=== PATIENT | female | born 1990 | race Caucasian/White ===

== ENCOUNTER 2016-07-12 13:56 | Emergency (ER) | payer OTHER ==
--- NOTE | 2016-07-12 15:52 | UC ---
Respiratory Complaint HPI - HPI Summary HPI Summary: 1) Patient comes to the office complaining of a cold that has moved in to her chest. States that she has had a cold for the past five weeks with a runny nose , cough and congestion. She had gradually improving symptoms over the last two weeks. Then last week, her nasal congestion returned as well as a productive cough positive for yellow mucus. She denies any fevers. 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 2) Sustained twisting injury to her right wrist. She was at [employer] on Wednesday, was supporting her body weight with her hands, and her right elbow "bowed" out. This movement resulted in the twisting of her right wrist. She states that she immediately felt pain and today it continues to hurt despite efforts to apply ice. She denies any pain in her elbow. Her right wrist is swollen, red and tender on palpation. - History of Current Complaint Chief Complaint: UCRespiratory Stated Complaint: SINUS COMPLAINT Time Seen by Provider: 07/12/16 15:21 Hx Obtained From: Patient Hx Last Menstrual Period: 2 years - on control Onset/Duration: Gradual Onset, Lasting Weeks Timing: Intermittent Episodes Severity Initially: Mild Severity Currently: Mild Character: Sputum Description: - yellow Aggravating Factors: Nothing Alleviating Factors: OTC Meds Associated Signs And Symptoms: Positive: Wheezing - with physical activity, Nasal Congestion. Negative: Dyspnea, Fever, Chills - Risk Factors Cardiac Risk Factors: Negative Pseudomonas Risk Factors: Negative - Allergies/Home Medications Allergies/Adverse Reactions: Allergies Allergy/AdvReac Type Severity Reaction Status Date / Time Pineapple Allergy Severe Unknown Verified 07/12/16 15:23 Reaction Details Home Medications: Home Medications [place]-3 Fatty Acids [Fish Oil] 1,000 mg PO DAILY 07/12/16 [History Confirmed ] PMH/Surg Hx/FS Hx/Imm Hx Previously Healthy: Yes Endocrine History Of: Denies: Diabetes, Thyroid Disease Cardiovascular History Of: Denies: Cardiac Disorders Respiratory History Of: Reports: Asthma - Surgical History Surgical History: Yes Surgery Procedure, Year, and Place: L ACL SX, ENDOMETRIOSIS. MANIPULATION OF L ACL. T & A. WISDOM TEETH EXTRACTION - Family History Known Family History: Positive: Hypertension - Social History Occupation: Employed Full-time Alcohol Use: Occasionally Substance Use Type: None Smoking Status (MU): Never Smoked Tobacco Review of Systems Constitutional: Negative Skin: Negative Eyes: Negative ENT: Nasal Discharge Respiratory: Cough Cardiovascular: Negative Gastrointestinal: Negative Genitourinary: Negative Motor: Negative Neurovascular: Negative Musculoskeletal: Negative Neurological: Negative Psychological: Negative All Other Systems Reviewed And Are Negative: Yes Physical Exam Triage Information Reviewed: Yes Appearance: Well-Appearing, No Pain Distress, Well-Nourished Vital Signs: Initial Vital Signs Temp 98.8 F 07/12/16 15:25 Pulse 59 07/12/16 15:25 Resp 16 07/12/16 15:25 BP 120/57 07/12/16 15:25 Pulse Ox 99 07/12/16 15:25 Vital Signs Reviewed: Yes Eye Exam: Normal Eyes: Positive: Conjunctiva Clear ENT: Positive: Pharynx normal, Nasal congestion, TMs normal. Negative: Pharyngeal erythema, Tonsillar swelling, Tonsillar exudate Neck exam: Normal Neck: Positive: Supple, Nontender, No Lymphadenopathy Respiratory Exam: Normal Respiratory: Positive: Chest non-tender, Lungs clear, Normal breath sounds, No respiratory distress, No accessory muscle use, Other: - no cough on exam. Negative: Crackles, Rhonchi, Stridor, Wheezing Cardiovascular Exam: Normal Cardiovascular: Positive: RRR, No Murmur Musculoskeletal Exam: Other - Right wrist swelling Musculoskeletal: Positive: Strength Limited @ - R cotton breeder, ROM Limited @ - R wrist , Other: - R wrist swelling, tender on palpation to R distal ulna Neurological Exam: Normal Neurological: Positive: Alert, Muscle Tone Normal Psychological Exam: Normal Psychological: Positive: Age Appropriate Behavior Skin Exam: Normal UC Diagnostic Evaluation - Laboratory O2 Sat by Pulse Oximetry: 99 Respiratory Course/Dx - Differential Dx/Diagnosis Provider Diagnoses: R wrist sprain. URI, likely viral Discharge - Discharge Plan Condition: Stable Disposition: HOME Patient Education Materials: Upper Respiratory Infection (ED), Wrist Sprain (ED ) Referrals: Paresh Campuzano MD [Medical Doctor] - 2 Weeks Additional Instructions: To arrange to see an orthopedist in [place], please call tomorrow morning. You can remove the splint for bathing and sleeping, but try to keep it on at other times. Call or return if you develop increasing fever, shortness of breath, chest pain , bloody sputum, or otherwise worsen. If you have not improved at all after several days, contact your primary care physician or return here.
--- NOTE | 2016-07-12 16:07 | RAD ---
INDICATION: Right wrist injury COMPARISON: None TECHNIQUE: AP, lateral, and oblique views were obtained. FINDINGS: The bony structures, joint spaces, and soft tissues are normal for age. IMPRESSION: NEGATIVE EXAMINATION
[2016-07-12 16:48] VITALS: BP 96/52
== END 2016-07-12 16:50 | disposition home or self-care (01) ==
LOC: UCCORT 13:56
DX: J06.9 Acute upper respiratory infection, unspecified (principal); S63.501A Unspecified sprain of right wrist, initial encounter; X50.1XXA Overexertion from prolonged static or awkward postures, initial encounter; Y93.B9 Activity, other involving muscle strengthening exercises; Y92.9 Unspecified place or not applicable
CPT/HCPCS: 99213; G0463

== ENCOUNTER 2017-03-02 16:59 | Emergency (ER) | payer BC, OTHER ==
[2017-03-02 17:12] VITALS: BP 119/67
--- NOTE | 2017-03-02 17:39 | UC ---
Complaint Female HPI - HPI Summary HPI Summary: 26 y/o female presents to the urgent care c/o urinary frequency and burning on urination since last night. Seh feels pelvic pressure. Pain is 4/10. Pt denies vaginal discharge, back pain, SOB, abdominal pain, N/V/D, Hx of STD's. LMP:3 years ago, Pt has not taking anything to alleviate symptoms - History Of Current Complaint Chief Complaint: UCGU Stated Complaint: URINARY Time Seen by Provider: 03/02/17 17:37 Hx Obtained From: Patient Hx Last Menstrual Period: on Ministren ?: No Onset/Duration: Gradual Onset, Lasting Days - 1 day, Still Present Timing: Intermittent Severity Initially: Mild Severity Currently: Mild Pain Intensity: 4 Pain Scale Used: 0-10 Numeric Character: Burning Aggravating Factor(s): Urination Alleviating Factor(s): Nothing Associated Signs And Symptoms: Positive: Negative. Negative: Fever, Back Pain, Vaginal Bleeding/Discharge, Vaginal Discharge - Risk Factors Ectopic Risk Factor: Negative Ovarian Torsion Risk Factor: Negative - Allergies/Home Medications Allergies/Adverse Reactions: Allergies Allergy/AdvReac Type Severity Reaction Status Date / Time Pineapple Allergy Severe Unknown Verified 03/02/17 17:12 Reaction Details PMH/Surg Hx/FS Hx/Imm Hx Previously Healthy: Yes - Pt denies PMHX - Surgical History Surgical History: Yes Surgery Procedure, Year, and Place: L ACL SX, ENDOMETRIOSIS. MANIPULATION OF L ACL. T & A. WISDOM TEETH EXTRACTION. gallbladder 07/2016 - Family History Known Family History: Positive: Hypertension, Diabetes - Social History Occupation: Employed Full-time Lives: With Family Alcohol Use: Occasionally Substance Use Type: None Smoking Status (MU): Never Smoked Tobacco - Immunization History Most Recent Influenza Vaccination: none Review of Systems Constitutional: Negative Skin: Negative Eyes: Negative ENT: Negative Respiratory: Negative Cardiovascular: Negative Gastrointestinal: Negative Genitourinary: Dysuria, Frequency Motor: Negative Neurovascular: Negative Musculoskeletal: Negative Neurological: Negative Psychological: Negative Is Patient Immunocompromised?: No All Other Systems Reviewed And Are Negative: Yes Physical Exam Triage Information Reviewed: Yes Vital Signs: Initial Vital Signs Temp 98.7 F 03/02/17 17:08 Pulse 63 03/02/17 17:08 Resp 15 03/02/17 17:08 BP 119/67 03/02/17 17:08 Pulse Ox 100 03/02/17 17:08 - Additional Comments Vital signs: reviewed General: Normotensive,well nourished , well developed female, in no acute distress. Head: Normocephalic, no lesions. Eyes: PERRLA, EOM's full, conjunctivae clear, fundi grossly normal. Ears: EAC's clear, TM's normal. Nose: Mucosa normal, no obstruction. Throat: Clear, no exudates, no lesions. Neck: Supple, no masses, no thyromegaly, no bruits. Chest: Lungs clear, no rales, no rhonchi, no wheezes. Heart: RR, no murmurs, no rubs, no gallops. Abdomen: Soft, no tenderness, no masses, BS normal. Pelvic: Pt decllined exam. Back: Normal curvature, no tenderness. No B/L CVA tenderness Extremities: FROM, no deformities, no edema, no erythema. Neuro: Physiological, no localizing findings. Skin: Normal, no rashes, no lesions noted. Complaint Female Dx - Course Course Of Treatment: 26 y/o female presents to the urgent care c/o urinary frequency and burning on urination since last night. Seh feels pelvic pressure. Pain is 4/10. Pt denies vaginal discharge, back pain, SOB, abdominal pain, N/V/ D, Hx of STD's. LMP:3 years ago, Pt has not taking anything to alleviate symptoms.Hx obtained. UA and test ordered. UA results: Blood 2+, Leukoesterase 1+. test: negative. Possible UTI.Pt Rx Macrobid 100mg PO x 7 days. Pyridium 100mg PO TID x 2 days. Advised to increase fluid intake. Urine sent for culture if any abnormality Pt will be notified for further treatment or stop ABX. Pt advised If symptoms do not improve to return to the urgent care or f/u with PCP. Pt understood and agreed. Left the clinic ambulating. - Differential Dx/Diagnosis Differential Diagnosis/HQI/PQRI: Cervicitis, , Renal Colic, Sexually Transmitted Disease, Ureteral Stone, Urinary Tract Infection Provider Diagnoses: 1- Urinary tract infection. 2-Dysuria Discharge - Discharge Plan Condition: Stable Disposition: HOME Prescriptions: Nitrofurantoin Monohyd Macro [Macrobid] 100 mg PO BID #10 cap Phenazopyridine TAB* [Pyridium 100 mg TAB*] 100 mg PO TID #6 tab Patient Education Materials: Urinary Tract Infection in Women (ED) Referrals: Vanessa Ferrera MD [Primary Care Provider] - If Needed Additional Instructions: 1- Please take Macrobid 100mg PO x 5 days. Pyridium 100 mg PO TID x 2 days to alleviate urinary symptoms. Increase increase fluid intake. drink cranberry juice. 2-Urine sent for culture if any abnormality, you will be notified for further treatment. 3-If symptoms do not improve please return to the urgent care or f/u with her PCP.
--- NOTE | 2017-03-05 07:33 | UC ---
Progress - Progress Note Progress Note: neg culture stop macrobid recheck prn
== END 2017-03-02 18:05 | disposition home or self-care (01) ==
LOC: UCCORT 16:59
DX: N39.0 Urinary tract infection, site not specified (principal); Z32.02 Encounter for pregnancy test, result negative; Z91.018 Allergy to other foods
CPT/HCPCS: 81003; 84702; 87086; 99212; G0463

== ENCOUNTER 2018-08-28 12:52 | Emergency (ER) | payer BC, OTHER ==
--- NOTE | 2018-08-28 14:11 | UC ---
Throat Pain/Nasal Glenn HPI - HPI Summary HPI Summary: 27-year-old female presents with complaints of nasal congestion, maxillary sinus pain, and mild sore throat for one week. States over the past 4 months she has been having recurrent sinus infections and was most recently treated approximately 3 weeks ago with a ten-day course of amoxicillin. Denies fever, chills, ear pain, dysphagia, chest pain, shortness of breath, or cough. - History of Current Complaint Stated Complaint: SINUS COMPLAINT Time Seen by Provider: 08/28/18 14:02 Hx Obtained From: Patient Hx Last Menstrual Period: on Ministren - Allergies/Home Medications Allergies/Adverse Reactions: Allergies Allergy/AdvReac Type Severity Reaction Status Date / Time pineapple Allergy Unknown Verified 08/28/18 14:12 Reaction Details PMH/Surg Hx/FS Hx/Imm Hx - Additional Past Medical History Additional PMH: Denies significant PMH - Surgical History Surgical History: Yes Surgery Procedure, Year, and Place: L ACL SX, ENDOMETRIOSIS. MANIPULATION OF L ACL. T & A. WISDOM TEETH EXTRACTION. gallbladder 07/2016 - Family History Known Family History: Positive: Hypertension, Diabetes - Social History Occupation: Student Lives: With Family Alcohol Use: Occasionally Substance Use Type: None Smoking Status (MU): Never Smoked Tobacco - Immunization History Most Recent Influenza Vaccination: none Review of Systems All Other Systems Reviewed And Are Negative: Yes Constitutional: Negative: Fever, Chills Skin: Negative: Rash Eyes: Negative: Drainage, Eye Redness ENT: Positive: Sore Throat, Nasal Discharge, Sinus Congestion, Sinus Pain/ Tenderness. Negative: Ear Ache Respiratory: Negative: Shortness Of Breath, Cough Cardiovascular: Negative: Palpitations, Chest Pain Gastrointestinal: Negative: Abdominal Pain, Vomiting, Diarrhea, Nausea Genitourinary: Positive: Negative Neurological: Positive: Negative Psychological: Positive: Negative Is Patient Immunocompromised?: No Physical Exam - Summary Physical Exam Summary: GENERAL APPEARANCE: Well developed, well nourished, alert and cooperative, and appears to be in no acute distress. EYES: Conjunctiva clear. No drainage. EARS: External auditory canals and tympanic membranes clear, hearing grossly intact. NOSE: Mild-moderate nasal congestion with mucosal erythema and edema. Maxillary sinus tenderness. THROAT: Pharyngeal cobblestoning. Tonsils surgically absent. Uvula midline. Oral cavity normal. Teeth and gingiva in good general condition. NECK: Neck supple, non-tender without lymphadenopathy. CARDIAC: Normal S1 and S2. No S3, S4 or murmurs. Rhythm is regular. There is no peripheral edema, cyanosis or pallor. Extremities are warm and well perfused. Capillary refill is less than 2 seconds. Peripheral pulses intact. LUNGS: Clear to auscultation without rales, rhonchi, wheezing or diminished breath sounds. ABDOMEN: Positive bowel sounds. Soft, nondistended, nontender. No guarding or rebound. No masses or hepatosplenomegally. MUSKULOSKELETAL: ROM intact to all extremities. No joint erythema or tenderness. Normal muscular development. Normal gait. SKIN: Skin normal color, texture and turgor with no lesions or eruptions. Triage Information Reviewed: Yes Vital Signs Reviewed: Yes Throat Pain/Nasal Course/Dx - Course Course Of Treatment: 27-year-old female presents with complaints of nasal congestion, maxillary sinus pain, and mild sore throat for one week. States over the past 4 months she has been having recurrent sinus infections and was most recently treated approximately 3 weeks ago with a ten-day course of amoxicillin. Denies fever, chills, ear pain, dysphagia, chest pain, shortness of breath, or cough. Afebrile. Vital signs stable. Exam was remarkable for mild to moderate nasal congestion with mucosal erythema and edema, maxillary sinus tenderness, and pharyngeal cobblestoning. Considering she was recently treated with a course of amoxicillin I will treat her for an acute sinusitis with Augmentin 875 mg twice a day 10 days as well as recommend symptomatic treatment including saline rinses, fluticasone nasal spray, and [id number] decongestant. I recommended that she have follow-up with ENT and she is requesting a referral to Dr. Shah which I did provide. She is to call his office tomorrow to schedule appointment. Anticipatory guidance and warning symptoms were reviewed with the patient. Verbalizes understanding and agrees with plan of care. - Differential Dx/Diagnosis Differential Diagnosis/HQI/PQRI: Influenza, Pharyngitis, Sinusitis, URI Provider Diagnosis: Acute maxillary sinusitis Discharge - Sign-Out/Discharge Documenting (check all that apply): Patient Departure All imaging exams completed and their final reports reviewed: No Studies - Discharge Plan Condition: Stable Disposition: HOME Prescriptions: Amoxicillin/Clavulanate TAB* [Augmentin TAB 875*] 875 mg PO BID #20 tab Fluticasone NASAL SPRAY 50MCG* [Flonase NASAL SPRAY 50MCG*] 2 spray BOTH NARES DAILY #1 btl Patient Education Materials: Sinusitis (ED) Referrals: CATE Brown [Primary Care Provider] - Irwin Shah MD [Medical Doctor] - Additional Instructions: Your history and exam are consistent with a sinus infection. With your recurrence of symptoms and recent treatment with amoxicillin we will treat you with a course of Augmentin 875 mg twice a day for 10 days. Take with food to avoid upset stomach. Be sure to complete the entire course even if feeling better. Drink plenty of fluids to avoid dehydration especially if you are running any fever. Use a saline rinse kit such as Neti Pot or NeilMed at least twice a day to help thin secretions and promote drainage of the sinuses. Use fluticasone (Flonase) nasal spray 2 sprays each nostril once daily. Use an over the counter decongestant such as Sudafed according to directions to help with congestion. Take over the counter acetaminophen (Tylenol) or ibuprofen (Advil, Motrin) according to directions as needed for pain or fever. Follow up with Dr. Shah for evaluation of your recurrent sinus infections. Call tomorrow for appointment. Seek immediate medical attention in the emergency room if you have fever greater than 100.5 F despite taking acetaminophen or ibuprofen, have chest pain , difficulty breathing, are unable to swallow, or have any worsening of symptoms. - Billing Disposition and Condition Condition: STABLE Disposition: Home - Attestation Statements Provider Attestation: Per institutional requirements, I have reviewed the chart, however, I was not consulted specifically or made aware of this patient by the midlevel provider. I did not personally evaluate, interact with , or disposition this patient.
[2018-08-28 14:16] VITALS: BP 126/62
== END 2018-08-28 14:49 | disposition home or self-care (01) ==
LOC: UCCORT 12:52
DX: J01.00 Acute maxillary sinusitis, unspecified (principal); Z91.018 Allergy to other foods
CPT/HCPCS: 99212; G0463